=== PATIENT | male | born 1975 | race Caucasian/White ===

== ENCOUNTER 2023-03-13 22:54 | Emergency (ER) | payer OTHER, SELFPAY ==
--- NOTE | ~2023-03-13 | CT_ITS ---
EXAMINATION: CT HEAD WITHOUT CONTRAST CLINICAL INFORMATION: Dizziness. Ataxia. COMPARISON: CT head from 04/14/2019. TECHNIQUE: Contiguous axial imaging was performed from the skull base to vertex without intravenous administration of contrast. This CT examination was performed using dose optimization techniques as appropriate, variously including the following: *Automated exposure control. *Adjustment of mA and/or kV according to patient size (this includes techniques or standardized protocols for targeted exams where dose is matched to indication/reason for exam; i.e. extremities or head). *Use of iterative reconstruction technique. DLP: 715 mGy-cm FINDINGS: There is no evidence of acute intracranial hemorrhage or edematous territorial infarction. Sutton-white matter differentiation is preserved. There is no abnormal attenuation within the brain parenchyma. The ventricles are normal in morphology and size. No evidence for obstructive hydrocephalus. No abnormal mass effect or midline shift. No extra-axial fluid collections. No acute soft tissue or osseous abnormalities. Mild mucosal thickening of the paranasal sinuses. Mild rightward nasal septal deviation. The mastoid air cells and middle ear cavities are clear. CT/CT head/brain wo IV con IMPRESSION: No evidence of acute intracranial hemorrhage or edematous territorial infarction.
[2023-03-13 23:00] VITALS: BP 141/102; PULSE 92; RESP 16; TEMP 36.6; O2SAT 97; BMI 38.7
--- NOTE | 2023-03-14 00:05 | ED.DIZZY ---
HPI - Dizziness General Chief Complaint: Ear Problems Stated Complaint: possible tinnitus? Ear pain Time Seen by Provider: 03/13/23 23:48 Source: patient Mode of arrival: ambulatory Limitations: no limitations History of Present Illness HPI Narrative: 39-year-old male who presents emergency department for evaluation of right ear tinnitus and feeling as if he is falling. Patient states that the symptoms came on gradually 3 days prior. 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 He states that when he came to. He still felt his chair would intermittently drops. States he then developed a ?electric sound sensation in his right ear. Patient states the did have a buzzing sensation in his right ear in the past which resolved. He states that the sensation in his right ear now was different than the original sound. He states that he also feels like his head is full but he denies headache nausea or vomiting. He denies numbness or weakness. He denied rhinorrhea, cough, chest pain shortness of breath. He denied decreased hearing in his right ear. Related Data Previous Rx's Medication Instructions Recorded triamterene 37.5 1 tab PO QAM #30 tabs 03/14/23 mg-hydrochlorothiazide 25 mg tablet Allergies Allergy/AdvReac Type Severity Reaction Status Date / Time No Known Allergies Allergy Unverified 03/06/20 19:45 [No Known Allergies*] Review of Systems Review of Systems: Yes all other systems are reviewed and are negative [facility] Past Medical History Attestation statement: The following information was validated with the patient. [facility] Narrative: Past medical history: None. 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 He denies tobacco use. He rarely drinks alcohol. He denies drug use. Social History Social History Advance Directives: No Advance Directives Information Provided: No Physical Exam Vital Signs: Vital Signs: Last Vital Signs Temp 97.8 F 03/13/23 23:00 Pulse 92 03/13/23 23:00 Resp 16 03/13/23 23:00 BP 141/102 H 03/13/23 23:00 Pulse Ox 97 03/13/23 23:00 O2 Del Method Room Air 03/13/23 23:00 BMI result Body Mass Index 38.7 Vital signs were normal except for an elevated blood pressure of 141/102 Exam: General: Awake, alert in no distress Head: Normocephalic, atraumatic EENT: PERRL, Lids normal, sclera normal, conjunctiva normal, nose normal , ears normal, throat without erythema or exudates Neck: Supple, no adenopathy, trachea midline and nontender Lung: breath sounds symmetric, no wheezing, rales or rhonchi Chest: symmetric movement, nontender Heart: regular rate and rhythm, normal S1, S2 no murmurs or rubs Abdomen: soft, non-tender, nondistended, normal bowel sounds Back: no vertebral tenderness, no CVAT Extremities: no deformities, moves all extremities symmetrically Skin: no rashes, no lesion, normal color and warmth Neuro: Awake, alert, oriented, normal speech, cranial nerves intact, moves all extremities symmetrically. Patient has good adixqw-hw-bodo-to-finger, good rapid finger motion, normal heel to briceño. Patient's gait is normal. Patient is able to walk a straight line without any difficulty. Psych: Pleasant, cooperative Medical Decision Making Medical Decision Making MDM Narrative: 47-year-old male with a history of intermittent dizziness who presents emergency department for evaluation of 3 days of right ear tinnitus with and intermittent sensation that he is falling. Patient has had no decreased hearing is had no other concerning symptoms. Physical examination revealed no nystagmus. Patient has normal hearing. His neurologic exam was nonfocal and he had a normal cerebellar exam. I ordered a CT scan of his brain to rule out bleed, stroke, mass effect. 0120: Patient's CT scan of the brain was unremarkable. Patient's presentation is consistent with Meniere's disease. The patient will be started on Maxzide(triamterene/hydrochlorothiazide 37.5/25 mg once a day. Patient was advised to follow-up with his PCP for referral to ENT for further evaluation and treatment. Differential Diagnosis Differential Diagnoses: The differential diagnosis associated with the presentation includes Differential diagnosis includes was not limited to Meniere's disease, positional vertigo, stroke, intracranial bleed, mass effect Admission/Observation Consideration of admission/observation: Escalation of care including admission/observation considered Radiology Impression Discussion of test interpretation with radiology: I have reviewed the radiologist's reading. Radiologist Impression: CT head/brain wo IV con IMPRESSION: No evidence of acute intracranial hemorrhage or edematous territorial infarction. Dictated By: Lembo,Rinku DO Prescription Management I considered prescription management with: Other (Maxzide) Discharge Plan Discharge Clinical Impression: Meniere's disease Qualifiers: Laterality: right Qualified Code(s): H81.01 - Meniere's disease, right ear Patient Disposition: Home, Self-Care Instructions: Meniere Disease (ED) Additional Instructions: Your symptoms are consistent with Meniere's disease. Your neurologic exam was normal. The CT scan of your brain was normal as well which is reassuring. Take Maxzide(triamterene/hydrochlorothiazide 37.5-25 mg) 1 pill in the morning for 1 month. This medication is often used for high blood pressure however this medication is also used in Meniere's disease and is believed to reduce the fluid and viscosity (thickness) in the inner ear balance mechanism. This medication does not help with the tinnitus/ringing in your ear . This medication is a diuretic/water pill and will make you pee/your for several hours in the morning after you take the medicine. Reduce the amount of salt in your diet Follow-up with her doctor for re-evaluation and for a referral to to and Ear Nose an Throat (ENT) doctor for further evaluation and treatment of your Meniere's disease. Prescriptions: New triamterene-hydrochlorothiazid 37.5-25 mg tablet 1 tab PO QAM Qty: 30 0RF Referrals: Jose Ely [Physician] - 2 weeks (Evaluate for possible Meniere's disease)
== END 2023-03-14 01:39 | disposition home or self-care (01) ==
PROVIDERS: Emergency Provider Emergency Medicine Emergency Medical Services
DX: H81.01 Meniere's disease, right ear (principal)
CPT/HCPCS: 70450; 99282; 99284

== ENCOUNTER 2024-03-10 06:37 | Emergency (ER) | payer OTHER, SELFPAY ==
[2024-03-10 06:41] VITALS: BP 132/99; PULSE 116; RESP 18; TEMP 36.6; O2SAT 96; BMI 32.1
[2024-03-10 07:46] VITALS: BP 133/100; PULSE 102; RESP 16; TEMP 36.7
[2024-03-10 08:00] LABS: Hematocrit 50.3 % (42.0-52.0); Hemoglobin 17.7 g/dl (14.0-18.0); Mean Corpuscular HGB Conc 35.2 g/dl (31.0-36.0); Mean Corpuscular Hemoglobin 30.9 pg (27.0-33.0); Mean Corpuscular Volume 87.9 fL (80.0-98.0); Mean Platelet Volume 9.9 fL (9.4-12.4); Platelet Count 331 X10*3/uL (160-400); Red Blood Count 5.72 X10*6/uL (4.60-5.80); Red Cell Distribution Width 12.4 % (11.0-16.0); White Blood Count 10.2 X10*3/uL (4.8-10.8)
[2024-03-10 08:16] LABS: Anion Gap 14 (12-20); Blood Urea Nitrogen 29 mg/dL (9-16); Carbon Dioxide 19 mmol/L (22-29); Chloride 107 mmol/L (96-108); Estimated Glomerular Filt Rate > 60; Glucose Random 139 mg/dL (60-115); Potassium 3.8 mmol/L (3.3-5.1); Sodium 136 mmol/L (135-145)
--- NOTE | 2024-03-10 08:23 | ED_ITS ---
HPI - Nausea/Vomiting/Diarrhea General Chief complaint: Nausea/Vomiting/Diarrhea Stated complaint: started Diarrhea, not watery Time Seen by Provider: 03/10/24 08:16 Source: patient Mode of arrival: ambulatory Limitations: no limitations History of Present Illness ED Provider: DR. Allison HPI Narrative: 48-year-old male came in for evaluation of multiple episodes of nonbloody watery diarrhea since yesterday, patient's symptoms started few hours [place]. no other sick contacts, no recent use of antibiotic, patient otherwise declined nausea, vomiting, abdominal pain. Patient feels dehydrated. No history of surgery in the abdomen. No fever, no chills. Patient is been taking Ozempic IM shot weekly recently was increased for the purpose of losing weight the patient stated that he is not losing a significant weight. Related Data Previous Rx's ?Medication ?Instructions ?Recorded triamterene 37.5 1 tab PO QAM #30 tabs 03/14/23 mg-hydrochlorothiazide 25 mg tablet Allergies Allergy/AdvReac Type Severity Reaction Status Date / Time No Known Allergies Allergy Unverified 03/10/24 06:42 [No Known Allergies*] Review of Systems 2 Review of Systems: All other systems are reviewed and are negative Constitutional: Reports as per HPI and Reports no additional constitutional complaints Eyes: Reports as per HPI and Reports no additional eye complaints Reports system reviewed and no additional complaints, except as documented Cardiovascular: Reports as per HPI and Reports no additional cardiovascular complaints Respiratory: Reports as per HPI and Reports no additional respiratory complaints Gastrointestinal: Reports as per HPI and Reports no additional gastrointestinal complaints Genitourinary: Reports no additional female genitourinary complaints Musculoskeletal: Reports no additional musculoskeletal complaints Skin/Breast: Reports system reviewed and no additional complaints, except as docu Psychiatric: Reports no additional psychiatric complaints Endocrine: Reports no additional endocrine complaints Hematologic/Lymphatic: Reports no additional hematologic/lymphatic complaints Allergic/Immunologic: Reports no additional allergic/immunologic complaints Reports system reviewed and no additional complaints, except as documented and Reports Abnormal speech present [facility] Social History Social History Alcohol intake: current Alcohol intake frequency: a few times a month Smoked in Last 30 Days: No Use of substances other than those prescribed or required for medical reasons: No Advance Directives: No Do you have a plan to hurt others: No Plan Physical Exam 2 Vital Signs: Vital Signs: Last Vital Signs Temp 98.1 F 03/10/24 07:46 Pulse 102 H 03/10/24 07:46 Resp 16 03/10/24 07:46 BP 133/100 H 03/10/24 07:46 Pulse Ox 96 03/10/24 06:41 O2 Del Method Room Air 03/10/24 07:46 BMI result Body Mass Index 32.1 Vital signs have been reviewed and appear to be correct. Blood pressure elevated. Heart rate Elevated. Respiratory rate normal. Temperature normal. Oxygen saturation normal. Appearance: Alert. Oriented X3. No acute distress. Head: Normal external exam. Normocephalic. Atraumatic. No Maxwell signs noted. No raccoon eyes noted Eyes: PERRLA. EOMI. Conjunctiva and sclera normal. Eyelids normal. ENT: TM's Normal. Pharynx normal. Uvula midline. dry mucous membranes. No trismus noted. No drooling noted. No muffled voice noted. Neck: Normal inspection. Neck supple. FROM. No adenopathy. Thyroid Normal. No meningeal signs. No neck mass noted. CVS: Normal heart rate and rhythm. Heart sound normal. No murmurs noted. Pulses normal throughout. Respiratory: No respiratory distress. Painless inspiration. Breath sounds normal. No wheezes/rales/rhonchi noted. Chest nontender. No accessory muscle usage noted or decreased air movement noted. Abdomen: Soft and nontender. Bowel sounds normal in all 4 quadrants. No distention noted. No organomegaly noted. No visible injury noted. Back: No CVA tenderness. Full range of motion noted. Skin: Skin warm and dry. Normal skin color. Normal skin turgor. No rashes/lesions/lacerations noted. Extremities: No lower extremity edema. Extremities exhibit normal range of motion. Extremities nontender. Neuro: Oriented X 3. Cranial nerve exam: II-XII are grossly intact No motor deficit. No sensory deficit. Reflexes normal. Course Reevaluation(s) Reevaluation #1: 48-year-old male started to have diarrhea and dehydration after eating [place]. Received IV hydration, repeat exam showed no abdominal pain or tenderness. Patient was instructed to follow-up with PCP in regard to Ozempic shots. Time: 11:30 Medical Decision Making Differential Diagnosis Differential Diagnoses: The differential diagnosis associated with the presentation includes ( gastroenteritis, food poisoning, gastritis, acute appendicitis, colitis, electrolyte derangement, severe anemia.) Admission/Observation Consideration of admission/observation: Escalation of care including admission/observation considered Lab Data MDM Lab Attestation statement: I reviewed the patient's lab results. 03/10/24 07:44 03/10/24 07:44 Labs: Lab Results 03/10/24 Range/Units 07:44 WBC 10.2 (4.8-10.8) X10*3/uL RBC 5.72 (4.60-5.80) X10*6/uL Hgb 17.7 (14.0-18.0) g/dl Hct 50.3 (42.0-52.0) % MCV 87.9 (80.0-98.0) fL MCH 30.9 (27.0-33.0) pg MCHC 35.2 (31.0-36.0) g/dl RDW 12.4 (11.0-16.0) % Plt Count 331 (160-400) X10*3/uL MPV 9.9 (9.4-12.4) fL Absolute Nucleated RBC 0.000 (0.0-0.012) X10*3/uL Nucleated RBC % (auto) 0.0 (0.0-0.2) /100WBC Sodium 136 (135-145) mmol/L Potassium 3.8 (3.3-5.1) mmol/L Chloride 107 (96-108) mmol/L Carbon Dioxide 19 L (22-29) mmol/L Anion Gap 14 (12-20) BUN 29 H (9-16) mg/dL Creatinine 1.01 (0.5-1.4) mg/dL Estim Creat Clear Calc 93.0 Estimated GFR > 60 Random Glucose 139 H (60-115) mg/dL Calcium 10.0 (8.4-10.2) mg/dL Discharge Plan Discharge Clinical Impression: Food poisoning, Dehydration Patient Disposition: Home, Self-Care Instructions: Food Poisoning (ED) Prescriptions: No Action triamterene-hydrochlorothiazid 37.5-25 mg tablet 1 tab PO QAM Qty: 30 0RF Referrals: Cecilia De Souza MD [Primary Care Provider] - Print Language: Indian
[2024-03-10] MEDS: 0.9 % Sodium Chloride 1,000 ML 999 ML IV ×2 (08:28→09:46)
--- NOTE | 2024-03-10 08:38 | PC.NURSE ---
pt is alert and oriented, skin appropriate for ethnicity, respirations even and unlabored, pt reports that yesterday around [address] and around 1800 started not feeling right, had sever diarrhea around 25 times, denies blood in the stool, no abd pain and no nausea/vomiting. had one episode of diarrhea since the arrival to the ED.
[2024-03-10 08:41] LABS: Alanine Aminotransferase 29 U/L (0-40); Albumin Level 4.7 g/dL (3.5-5.0); Alkaline Phosphatase 84 U/L (39-117); Aspartate Amino Transferase 21 U/L (5-37); Bilirubin Direct 0.2 mg/dL (0.0-0.5); Bilirubin Total 0.5 mg/dL (0.0-1.0); Lipase 24 U/L (8-78); Total Protein 8.8 g/dL (6.5-8.0)
--- NOTE | 2024-03-10 10:00 | PC.NURSE ---
holding the imodium for now because attempting to obtain a stool sample but pt is unable to provide a stool sample at this time
[2024-03-10 10:08] VITALS: BP 145/98; PULSE 95; RESP 16; TEMP 36.7; O2SAT 98
--- NOTE | 2024-03-10 11:35 | PC.NURSE ---
pt continuos on sleeping, respirations even and unlabored, in no apparent distress at this time
[2024-03-10 12:10] VITALS: BP 129/90; PULSE 95; RESP 18; TEMP 36.8; O2SAT 98
[2024-03-10] MEDS: Loperamide HCl 2 MG CAPSULE PO (12:14)
[2024-03-10 12:39] VITALS: BP 129/90; PULSE 95; RESP 18; TEMP 36.8; O2SAT 98
== END 2024-03-10 12:39 | disposition home or self-care (01) ==
PROVIDERS: Emergency Provider Emergency Medicine; PCP Internal Medicine
DX: A05.9 Bacterial foodborne intoxication, unspecified (principal); R19.7 Diarrhea, unspecified; E86.0 Dehydration
CPT/HCPCS: 36415; 80048; 80076; 83690; 85027; 96360; 96361; 99284

== ENCOUNTER 2024-03-11 00:41 | Inpatient (IN) | payer OTHER, SELFPAY ==
--- NOTE | ~2024-03-11 | XR_ITS ---
EXAMINATION: XR ABDOMEN KUB CLINICAL INDICATION: Ileus. Follow-up. COMPARISON: Abdomen March 11, 2024. TECHNIQUE: AP view of the abdomen. FINDINGS: Enteric catheter tip in stomach. There is some gas in both large and small bowel loops without abnormal bowel dilatation. study Nonobstructive bowel pattern. No radiopaque urinary calculi. XR/XR KUB IMPRESSION: Enteric catheter tip in stomach. Nonobstructive bowel pattern. Electronically signed by: Madi Amaya MD 03/12/2024 03:46 PM EDT
--- NOTE | ~2024-03-11 | CT_ITS ---
EXAMINATION: CT ABDOMEN AND PELVIS WITHOUT CONTRAST CLINICAL INFORMATION: Abdominal distention. Air-fluid level on plain x-ray examination. COMPARISON: None available. TECHNIQUE: Multidetector volumetric imaging was performed from the superior aspect of the liver through the pubic symphysis. Sagittal and coronal reformatted images were obtained on the technologist's workstation. This CT examination was performed using dose optimization techniques as appropriate, variously including the following: *Automated exposure control *Adjustment of mA and/or kV according to patient size (this includes techniques or standardized protocols for targeted exams where dose is matched to indication/reason for exam; i.e. extremities or head) *Use of iterative reconstruction technique DLP: 708 mGy-cm FINDINGS: LUNG BASES: The visualized lung bases are unremarkable. LIVER, GALLBLADDER, AND BILIARY TREE: The liver is normal in size, shape, and attenuation. No focal hepatic lesion or biliary ductal dilatation is present. The gallbladder is unremarkable with no evidence of radiopaque gallstones, gallbladder wall thickening, or obvious pericholecystic inflammatory changes. PANCREAS: Unremarkable. SPLEEN: Unremarkable. ADRENAL GLANDS: Unremarkable. KIDNEYS AND URETERS: The kidneys are normal in size, shape, and attenuation. There is a 4 mm calculus mid to upper pole left kidney. There is no hydronephrosis. BLADDER: Unremarkable. GASTROINTESTINAL TRACT: There is distention mild thickening of the visualized distal esophagus. There is gastric distention with an air-fluid level. There are distended/mildly dilated proximal, mid and mid to distal small bowel loops with normal caliber most distal small bowel. The appendix is visualized and is within normal limits. There is air and fluid throughout the colon. ABDOMINAL WALL: No significant hernia is appreciated. LYMPH NODES: Normal. VASCULAR: Unremarkable. PELVIC VISCERA: Unremarkable. OSSEOUS STRUCTURES: Unremarkable. CT/CT abdomen pelvis wo IV con IMPRESSION: Distended/mildly dilated mid and proximal to distal small bowel loops with normal caliber most distal small bowel. There is air and fluid in the colon. There is distention of the stomach with an air-fluid level and mild thickening of the visualized distal esophagus. Findings are suggestive of an ileus. Partial small bowel obstruction considered less likely. Small left renal calculus. Fleischner guidelines were followed. Electronically signed by: Brennan Ruiz MD 03/11/2024 04:55 AM EDT RP
--- NOTE | ~2024-03-11 | XR_ITS ---
EXAMINATION: XR ABDOMEN KUB CLINICAL INDICATION: Pain. Concern for obstruction. COMPARISON: None available. TECHNIQUE: AP view of the abdomen. FINDINGS: There is mild gaseous distention of small bowel with air to the rectum. Scattered small bowel air-fluid levels are seen. There appears to be mild gastric distention. There is no evidence for free air. No abnormal calcifications are seen. The bony structures are unremarkable. XR/XR KUB IMPRESSION: Mild gaseous distention of small bowel with air-fluid levels. This is nonspecific, but could represent ileus. Correlation and follow-up needed. Electronically signed by: Brennan Ruiz MD 03/11/2024 02:59 AM EDT
--- NOTE | ~2024-03-11 | XR_ITS ---
EXAMINATION: XR CHEST CLINICAL INFORMATION: Nasogastric tube placement. COMPARISON: April 14, 2019. TECHNIQUE: Frontal view of the chest was obtained. FINDINGS: The cardiomediastinal silhouette is stable. There has been interval placement of a gastric tube which extends below the diaphragm into the left upper abdomen. The tip of the gastric tube is not seen. There is no focal lung consolidation or pleural effusions. The bony structures and the soft tissues are unremarkable. XR/XR chest 1V IMPRESSION: Gastric tube extends below the diaphragm into the left upper abdomen. The tip of the gastric tube is not seen. No focal lung consolidation or pleural effusions. Electronically signed by: Brennan Ruiz MD 03/11/2024 06:14 AM EDT
[2024-03-11 00:43] VITALS: BP 134/101; PULSE 108; RESP 18; TEMP 37.1; O2SAT 97; BMI 31.8
--- NOTE | 2024-03-11 00:52 | ECG_ITS ---
Test Reason : ABD PAIN Blood Pressure : / mmHG Vent. Rate : 103 BPM Atrial Rate : 103 BPM P-R Int : 144 ms QRS Dur : 106 ms QT Int : 342 ms P-R-T Axes : 035 -50 042 degrees QTc Int : 448 ms Sinus tachycardia Left anterior fascicular block Cannot rule out Inferior infarct (masked by fascicular block?) , age undetermined Abnormal ECG When compared with ECG of 26-JUN-2019 00:59, QRS axis Shifted left Minimal criteria for Inferior infarct are now Present Referred By: Generic ED Physician Electronically Signed By:MARYBEL RIVERA
[2024-03-11 01:16] VITALS: BP 125/95; PULSE 105; RESP 17; TEMP 36.4; O2SAT 95
[2024-03-11 01:39] LABS: MANUAL DIFF FLAG NO
[2024-03-11 01:41] LABS: Basophils Percent Auto 0.2 % (0-2); Eosinophils Absolute Auto 0.1 X10*3/uL (0.0-0.4); Eosinophils Percent Auto 0.5 % (0-4); Hematocrit 50.5 % (42.0-52.0); Hemoglobin 18.1 g/dl (14.0-18.0); Imm Gran Abs Auto 0.03 X10*3/uL (0.00-0.03); Imm Gran Pct Auto 0.3 % (0.0-0.4); Lymphocytes Percent Auto 8.4 % (20-40); Mean Corpuscular HGB Conc 35.8 g/dl (31.0-36.0); Mean Corpuscular Hemoglobin 31.2 pg (27.0-33.0); Mean Corpuscular Volume 87.1 fL (80.0-98.0); Mean Platelet Volume 9.7 fL (9.4-12.4); Monocytes Absolute Auto 0.6 X10*3/uL (0.1-1.2); Monocytes Percent Auto 4.9 % (2-11); Neutrophils Percent Auto 85.7 % (45-73); Platelet Count 319 X10*3/uL (160-400); Red Cell Distribution Width 12.5 % (11.0-16.0); White Blood Count 11.6 X10*3/uL (4.8-10.8)
[2024-03-11 01:54] LABS: Anion Gap 14 (12-20)
[2024-03-11 02:06] LABS: Alanine Aminotransferase 28 U/L (0-40); Albumin Level 4.7 g/dL (3.5-5.0); Alkaline Phosphatase 91 U/L (39-117); Aspartate Amino Transferase 20 U/L (5-37); Bilirubin Total 0.9 mg/dL (0.0-1.0); Blood Urea Nitrogen 21 mg/dL (9-16); Calcium 10.2 mg/dL (8.4-10.2); Carbon Dioxide 18 mmol/L (22-29); Chloride 109 mmol/L (96-108); Creatinine Clr Calc Pharmacy 94.4; Estimated Glomerular Filt Rate > 60; Glucose Random 132 mg/dL (60-115); Lipase 18 U/L (8-78); Potassium 4.1 mmol/L (3.3-5.1); Sodium 137 mmol/L (135-145); Total Protein 8.9 g/dL (6.5-8.0)
[2024-03-11 02:17] LABS: Influenza A PCR NEGATIVE (Negative); Influenza B PCR NEGATIVE (Negative); Resp Syncy Virus RNA Qual PCR NEGATIVE (Negative); SARS COV2 PCR INHOUSE NEGATIVE (Negative)
--- NOTE | 2024-03-11 02:36 | ED.NAVMDI ---
HPI - Nausea/Vomiting/Diarrhea General Chief complaint: Nausea/Vomiting/Diarrhea Stated complaint: n/v/d, uro gen male Time Seen by Provider: 03/11/24 02:26 Source: patient Mode of arrival: ambulatory Limitations: no limitations History of Present Illness ED Provider: Dr. Henriquez HPI Narrative: Patient was seen yesterday with vomiting and diarrhea after eating a subway sandwhich. Today he presents with abdominal pain and distention. MD elicited complaint: nausea, vomiting, diarrhea and abdominal pain Related Data Home Medications ?Medication ?Instructions ?Recorded ?Confirmed psyllium husk 0.52 gram capsule 1,450 PO DAILY 03/11/24 semaglutide 0.25 mg or 0.5 mg (2 0.75 mg subcut QWEEK 03/11/24 03/11/24 mg/3 mL) subcutaneous pen injector (Ozempic) tadalafil 5 mg tablet 5 mg PO DAILY 03/11/24 03/11/24 Allergies Allergy/AdvReac Type Severity Reaction Status Date / Time No Known Allergies Allergy Verified 03/11/24 00:43 [No Known Allergies*] Review of Systems Review of Systems: Yes all other systems are reviewed and are negative Neurologic: Denies Sensory deficit (Neuro) [facility] Past Medical History Medical History (Updated 03/11/24 @ 10:53 by Jani Huffman MD) Gastroenteritis Hypertension Social History Social History Household Members: None Housing: Apartment Do you presently have visiting nurse or other home services: No Alcohol intake: current Alcohol intake frequency: a few times a month Patient Tobacco Use Status: Former Tobacco user Tobacco use type: Cigarette Smoked in Last 30 Days: No Use of substances other than those prescribed or required for medical reasons: No Currently Displaying Signs/Symptoms of Drug Intoxication Withdrawal: No Do you feel safe in your current relationship?: No Current Relationship Advance Directives: No Advance Directives Information Provided: Yes Do you have a plan to hurt others: No Plan Recently lost weight without trying: No Nutrition Risks: No Nutritional Risk Poor oral hygiene: No service: No Physical Exam Vital Signs: Vital Signs: Last Vital Signs Temp 98 F 03/12/24 19:10 Pulse 89 03/12/24 19:10 Resp 20 03/12/24 19:10 BP 119/82 03/12/24 19:10 Pulse Ox 95 03/12/24 19:10 O2 Del Method Room Air 03/12/24 19:10 BMI result Body Mass Index 31.8 Const: General: healthy appearing Nutritional Appearance: average body habitus Orientation/consciousness: oriented to person and patient oriented x3 Limitations: no limitations HEENT: Head: Yes normal to inspection Ears: external ears normal General nose exam: Normal external nose present Mouth: Normal oral and palatal mucosa present and oropharynx normal Throat: Yes posterior oropharynx normal Eyes: General: appearance normal, both eyes and all related structures Neck: Other: supple Neck: Yes normal visual inspection Chest: Chest palpation & inspection: normal inspection of the chest Resp: Auscultation: clear to auscultation bilaterally Cardio: Jugular venous distension: no JVD Rate: regular rate Rhythm: regular rhythm Heart sounds: S1 normal heart sound present and S2 normal heart sound present GI: Other: diffusely tender abdomen with some distention : General: Yes no CVA tenderness Back/Spine/Pelvis: Back: no CVA tenderness Skin: General skin exam: no rashes or lesions noted Neuro: General: oriented to person and patient oriented x3 Cranial nerves: Yes CN's II-XII intact bilaterally Motor exam (neuro): 5/5 motor strength present throughout Sensory Exam: No Sensory deficit (Neuro) Extrem: General: Yes normal to inspection Psych: Appearance: grossly normal Course Reevaluation(s) Reevaluation #1: KUB showed air fluid levels concerning for SBO, CT of abdomen shows mostly ileus will place NGT and admit. Time: 05:30 Medications Administered Generic Name Dose Route Start Last Admin Trade Name Freq PRN Reason Stop Dose Admin Lactated Ringer's 1,000 mls @ 125 mls/hr 03/11/24 08:45 03/13/24 01:09 Lr IVCONT 125 mls/hr .Q8H GINGER Administration Multi-Ingred Medicated Throat [place] 1 spray 03/11/24 08:43 03/12/24 05:56 Throat [place], Medicated 177 Ml Bottle MUCOUS MEM 1 spray Q2H PRN Administration Sore Throat Sodium Chloride 3 ml 03/11/24 08:00 03/13/24 00:20 0.9 % Sodium Chloride Flush 3 Ml Syringe IVFLUSH Not Given QSHIFT GINGER Discontinued Medications Generic Name Dose Route Start Last Admin Trade Name Freq PRN Reason Stop Dose Admin Diphenhydramine HCl 25 mg 03/11/24 16:14 03/11/24 16:27 Diphenhydramine Hcl 50 Mg/Ml Vial IVPUSH 03/11/24 16:15 25 mg ONCE ONE Administration Sodium Chloride 1,000 mls @ 999 mls/hr 03/11/24 02:45 03/11/24 04:42 Ns IV 03/11/24 03:45 Infused .Q1H1M GINGER Infusion Lorazepam 1 mg 03/11/24 06:41 03/11/24 07:18 Lorazepam 2 Mg/Ml Vial IVPUSH 03/11/24 06:42 1 mg STAT STA Administration Ondansetron HCl 4 mg 03/11/24 05:41 03/11/24 05:46 Ondansetron Hcl 4 Mg/2 Ml Vial IVPUSH 03/11/24 05:42 4 mg ONCE ONE Administration Pantoprazole Sodium 40 mg 03/11/24 02:37 03/11/24 02:55 Pantoprazole Sodium 40 Mg/10 Ml Vial IVPUSH 03/11/24 02:38 40 mg ONCE ONE Administration Medical Decision Making Differential Diagnosis Differential Diagnoses: The differential diagnosis associated with the presentation includes (SBO, ileus, dehydration) Admission/Observation Consideration of admission/observation: Escalation of care including admission/observation considered (upon arrival admission was considered) Consult Healthcare Provider Management of the patient was discussed with: Hospitalist and [employer] Operator (Dr. Huffman) Lab Data 03/12/24 05:41 03/12/24 05:41 Labs: Lab Results 03/11/24 Range/Units 01:34 WBC 11.6 H (4.8-10.8) X10*3/uL RBC 5.80 (4.60-5.80) X10*6/uL Hgb 18.1 H (14.0-18.0) g/dl Hct 50.5 (42.0-52.0) % MCV 87.1 (80.0-98.0) fL MCH 31.2 (27.0-33.0) pg MCHC 35.8 (31.0-36.0) g/dl RDW 12.5 (11.0-16.0) % Plt Count 319 (160-400) X10*3/uL MPV 9.7 (9.4-12.4) fL Immature Gran % (Auto) 0.3 (0.0-0.4) % Neut % (Auto) 85.7 H (45-73) % Lymph % (Auto) 8.4 L (20-40) % [place] % (Auto) 4.9 (2-11) % Eos % (Auto) 0.5 (0-4) % Baso % (Auto) 0.2 (0-2) % Lymph # (Auto) 1.0 L (1.2-4.9) X10*3/uL [place] # (Auto) 0.6 (0.1-1.2) X10*3/uL Eos # (Auto) 0.1 (0.0-0.4) X10*3/uL Baso # (Auto) 0.0 (0.0-0.2) X10*3/uL Abs Immat Gran (auto) 0.03 (0.00-0.03) X10*3/uL Absolute Neuts (auto) 10.0 H (2.0-8.3) x10*3/uL Absolute Nucleated RBC 0.000 (0.0-0.012) X10*3/uL Nucleated RBC % (auto) 0.0 (0.0-0.2) /100WBC Sodium 137 (135-145) mmol/L Potassium 4.1 (3.3-5.1) mmol/L Chloride 109 H (96-108) mmol/L Carbon Dioxide 18 L (22-29) mmol/L Anion Gap 14 (12-20) BUN 21 H (9-16) mg/dL Creatinine 0.99 (0.5-1.4) mg/dL Estim Creat Clear Calc 94.4 Estimated GFR > 60 Random Glucose 132 H (60-115) mg/dL Calcium 10.2 (8.4-10.2) mg/dL Total Bilirubin 0.9 (0.0-1.0) mg/dL AST 20 (5-37) U/L ALT 28 (0-40) U/L Alkaline Phosphatase 91 (39-117) U/L Total Protein 8.9 H (6.5-8.0) g/dL Albumin 4.7 (3.5-5.0) g/dL Lipase 18 (8-78) U/L Influenza Type A (PCR) NEGATIVE (Negative) Influenza Type B (PCR) NEGATIVE (Negative) RSV RNA Qual (PCR) NEGATIVE (Negative) SARS-CoV-2 RNA (RT-PCR) NEGATIVE (Negative) Independent Interpretation I performed an independent interpretation of an: Plain X-Ray (air fluid levels throughout colon and small bowel possible sbo) and CT Scan (dilated bowel loops) Radiology Impression Discussion of test interpretation with radiology: I have reviewed the radiologist's reading. External Record Review External record reviewed: Outpatient record Prescription Management I considered prescription management with: Antibiotic (no bacterial infection seen) Discharge Plan Discharge Clinical Impression: Ileus, SBO (small bowel obstruction) Patient Disposition: Admitted As Inpatient Interventions: Admission Worksheet (ED) Last Done: 03/11/24 07:47 Discharge Date/Time: 03/11/24 10:18
[2024-03-11] MEDS: Pantoprazole Sodium 40 MG/10 ML VIAL IVPUSH (02:55)
[2024-03-11] MEDS: 0.9 % Sodium Chloride 1,000 ML 999 ML IV (02:55)
[2024-03-11] MEDS: ondansetron HCL 4 MG/2 ML VIAL IVPUSH (05:46)
[2024-03-11 05:54] VITALS: BP 147/97; PULSE 123; RESP 18; TEMP 36.3; O2SAT 97
--- NOTE | 2024-03-11 06:08 | P.HPHOSP_ITS ---
History of Present Illness Date of Service: 03/11/24 Chief Complaint: Abdominal pain and distention This is a 48-year-old male with pertinent history of hypertension, obesity on Ozempic who presents to the emergency department for evaluation of abdominal pain and distention. Patient states he started having multiple episodes of nonbloody watery diarrhea on 03/09 after he ate a [employer] sandwich. Patient was seen in the ER on 03/10 and discharged after IV crystalloid resuscitation. Patient states he continued to have abdominal pain with distention. Abdominal pain was generalized, progressive, nonradiating and without any relieving factors. States he was unable to pass stools on the day of presentation despite abdominal pressure. No history of similar complaints in the past or history of abdominal surgery. No recent use of antibiotics. Had 1 episode of nonbloody emesis in the ER. No fever, chills, chest discomfort, palpitations, shortness of breath, changes in urinary habits. In the emergency department, imaging concerning for ileus. NG tube was placed and more than 1200 cc output obtained. Review of Systems 2 Constitutional: Constitutional: Reports fatigue and Reports poor appetite Cardiovascular: Cardiovascular: Reports no additional cardiovascular complaints Respiratory: Respiratory: Reports no additional respiratory complaints Gastrointestinal: Gastrointestinal: Reports abdominal pain, Reports nausea and Reports vomiting Genitourinary: Genitourinary: Reports no additional male genitourinary complaints Endocrine: Endocrine: Reports fatigue [facility] Medical History Hypertension Pertinent family history: No family history of early CAD Social History Alcohol intake: current Alcohol intake frequency: a few times a month Smoked in Last 30 Days: No Use of substances other than those prescribed or required for medical reasons: No Advance Directives: No Advance Directives Information Provided: Yes Do you have a plan to hurt others: No Plan Meds Allergies Allergy/AdvReac Type Severity Reaction Status Date / Time No Known Allergies Allergy Verified 03/11/24 00:43 [No Known Allergies*] Physical Exam 2 Vital Signs and Narrative: Vital Signs: Last Vital Signs Temp 97.3 F 03/11/24 05:54 Pulse 123 H 03/11/24 05:54 Resp 18 03/11/24 05:54 BP 147/97 H 03/11/24 05:54 Pulse Ox 97 03/11/24 05:54 O2 Del Method Room Air 03/11/24 05:54 BMI result Body Mass Index 31.8 Middle-aged male lying in bed in no distress with NG tube in place Neck supple, no JVD Regular rate and rhythm, S1-S2 heard Regular breath sounds bilaterally, no wheezing or crackles appreciated Abdomen distended abdomen and reduced bowel sounds, no guarding, no rigidity, no rebound tenderness Patient is awake, alert and oriented to self, place, time and person ; no focal motor deficit Psych: Normal mood No pedal edema Results Labs 03/11/24 01:34 03/11/24 01:34 Labs: Laboratory Results - last 24 hr 03/11/24 01:34 MCV 87.1 MCH 31.2 MCHC 35.8 RDW 12.5 Plt Count 319 MPV 9.7 Immature Gran % (Auto) 0.3 Neut % (Auto) 85.7 H Lymph % (Auto) 8.4 L Mcculloch % (Auto) 4.9 Eos % (Auto) 0.5 Baso % (Auto) 0.2 Lymph # (Auto) 1.0 L Mcculloch # (Auto) 0.6 Eos # (Auto) 0.1 Baso # (Auto) 0.0 Abs Immat Gran (auto) 0.03 Absolute Neuts (auto) 10.0 H Absolute Nucleated RBC 0.000 Nucleated RBC % (auto) 0.0 Anion Gap 14 Estim Creat Clear Calc 94.4 Estimated GFR > 60 Random Glucose 132 H Calcium 10.2 Total Bilirubin 0.9 AST 20 ALT 28 Alkaline Phosphatase 91 Total Protein 8.9 H Albumin 4.7 Lipase 18 Influenza Type A (PCR) NEGATIVE Influenza Type B (PCR) NEGATIVE RSV RNA Qual (PCR) NEGATIVE SARS-CoV-2 RNA (RT-PCR) NEGATIVE Imaging Radiologist's Impressions: Impressions KUB X-Ray 03/11/24 02:37 IMPRESSION: Mild gaseous distention of small bowel with air-fluid levels. This is nonspecific, but could represent ileus. Correlation and follow-up needed. Electronically signed by: Brennan Ruiz MD 03/11/2024 02:59 AM EDT Abdomen/Pelvis CT 03/11/24 03:46 IMPRESSION: Distended/mildly dilated mid and proximal to distal small bowel loops with normal caliber most distal small bowel. There is air and fluid in the colon. There is distention of the stomach with an air-fluid level and mild thickening of the visualized distal esophagus. Findings are suggestive of an ileus. Partial small bowel obstruction considered less likely. Small left renal calculus. Fleischner guidelines were followed. Electronically signed by: Brennan Ruiz MD 03/11/2024 04:55 AM EDT RP Assessment and Plan (1) Ileus: Status: Acute Plan This is a 48-year-old male with pertinent history of hypertension, obesity on Ozempic who presents to the emergency department for evaluation of abdominal pain and distention. #. Ileus/partial SBO: NG tube placed in the ER with >1200cc output. Will keep patient NPO and consulting general surgery. Resuscitated with IV crystalloids. Continue NG tube with suction. #. Hypertension: Resume home antihypertensives once able to take p.o. #. Obesity: Counseled regarding diet and exercise. Patient on Ozempic Med rec pending DVT prophylaxis: Mechanical Full code Admit as inpatient and will require two night minimum hospital stay for monitoring of bowel function (as above), which is not possible in a lesser acute setting. Specialist consult pending Quality Stroke Does the patient have a stroke diagnosis?: No VTE Prior VTE?: No VTE Risk Level:: Medical - moderate - high VTE Device Contraindication: N/A - Device Ordered VTE Drug Contraindication: Treatment Not Indicated
--- NOTE | 2024-03-11 06:24 | PC.NURSE ---
[place] text Dr Power, informed him, pt's heart rate was 122. Dr Power replied that was fine. No new orders
--- NOTE | 2024-03-11 06:56 | PC.NURSE ---
report given to Karla SPENCER
[2024-03-11] MEDS: LORazepam 2 MG/ML VIAL 1 MG IVPUSH (07:18)
--- NOTE | 2024-03-11 08:09 | PHA.MEDREC ---
Addendum entered by Hermelindo Nichols RPh 03/11/24 09:10: MED REC CHECKED BY [facility] Original Note: Pharmacy Consult ? Medication Reconciliation Pharmacy has completed the medication reconciliation. Pt states they will no longer take Ozempic on their own volition, but last took 0.75 mg last week.
[2024-03-11] MEDS: 0.9 % Sodium Chloride Flush 3 ML SYRINGE IVFLUSH (08:35)
--- NOTE | 2024-03-11 08:39 | PC.NURSE ---
Belongings list completed, by supervisor pit and auxiliaries. Pt reports he cannot locate his Rx glasses. They have a thick black frame. Pt reports when placing his NG tube his blankets became very soiled and were removed from his bed. He suspects the glasses were wrapped up in those blankets and were taking away along with. Call placed down to environmental, staff willing to check laundry bags located there for Pts glasses and will report any findings. Pt made aware of effort to locate glasses.
--- NOTE | 2024-03-11 08:45 | P.EN_ITS ---
Event Note Date of Service: 03/11/24 Event Note: Seen and examined this morning. patient awake, alert; abdomen soft, non- distended non-tender; lungs clear Follow-up for ileus Abdominal distention improved, abdominal pain improved, but reporting discomfort from NGT NG tube in place surgical consult pending GI panel pending ozempic dose recently increased - on hold for hypertension - does not appear to be on any medication further management as per admission H&P Time Spent With Patient Time: Total time managing care of this patient today ____ minutes.
[2024-03-11] MEDS: Lactated Ringers 1,000 ML 100 ML IVCONT (10:24)
[2024-03-11 10:31] VITALS: BP 132/86; PULSE 116; RESP 16; TEMP 36.9; O2SAT 98
--- NOTE | 2024-03-11 10:41 | MHC.CM.PN ---
Patient lives in an apartment alone. Functionally independent. Denies use of DME or services. PCP Koki Torres MD No HCP. CM provided education and offered assistance. Patient declined. DP: Goal is home self care. Car in [facility] lot and prefers to transport self home. May need shuttle as he believes he lost his glasses in the ED. CM will continue to follow.
[2024-03-11 10:43] VITALS: BMI 32.0
--- NOTE | 2024-03-11 10:50 | PM.CNGS ---
History of Present Illness Consult details Consult date: 03/11/24 Narrative: 48-year-old male admitted because of her diarrhea. He says this started after he had eaten at [employer] 2 nights ago. He started to have severe diarrhea immediately. He says that this was very watery. He went to the ER yesterday morning. Apparently, he had improved so he was discharged but he said he had at least episodes of watery diarrhea overnight so he came back to the emergency room early this morning He had a CAT scan done showing diffuse small-bowel dilatation consistent with ileus. There is no evidence of any obstruction He says that his diarrhea has slowed down this morning. He actually denies significant abdominal pain. He says he feels more of pressure in his abdomen. He denies any vomiting . No other household members of the same symptoms. Review of Systems Constitutional: Constitutional: Denies chills and Denies fever(s) Cardiovascular: Cardiovascular: Denies chest pain, Denies dyspnea and Denies dyspnea on exertion Respiratory: Respiratory: Denies cough, Denies dyspnea and Denies dyspnea on exertion Gastrointestinal: Gastrointestinal: Denies hematochezia, Denies change in bowel habits and Reports diarrhea Genitourinary: Genitourinary: Denies hematuria and Denies difficulty urinating Musculoskeletal: Musculoskeletal: Denies back pain and Denies limited range of motion Neurologic: Denies focal weakness and Denies convulsions Psychiatric: Psychiatric: Denies depression and Denies mood swings PMFSH Past Medical History Medical History (Updated 03/11/24 @ 10:53 by Jani Huffman MD) Gastroenteritis Hypertension Social History Social History Household Members: None Housing: Apartment Do you presently have visiting nurse or other home services: No Alcohol intake: current Alcohol intake frequency: a few times a month Patient Tobacco Use Status: Former Tobacco user Tobacco use type: Cigarette Smoked in Last 30 Days: No Use of substances other than those prescribed or required for medical reasons: No Currently Displaying Signs/Symptoms of Drug Intoxication Withdrawal: No Do you feel safe in your current relationship?: No Current Relationship Advance Directives: No Advance Directives Information Provided: Yes Do you have a plan to hurt others: No Plan Recently lost weight without trying: No Nutrition Risks: No Nutritional Risk Poor oral hygiene: No service: No Meds Allergies Allergy/AdvReac Type Severity Reaction Status Date / Time No Known Allergies Allergy Verified 03/11/24 00:43 [No Known Allergies*] Active Medications: Current Medications Acetaminophen (Acetaminophen 325 Mg Tablet) 650 mg PO Q6H PRN PRN Reason: Pain, Mild (Pain Scale 1-3), fever or headache Calcium Carbonate (Calcium Carbonate 750 Mg Tab.Chew) 750 mg PO Q4H PRN PRN Reason: Heartburn Lactated Ringer's (Lr) 1,000 mls @ 100 mls/hr IVCONT .Q10H COUNT INCLUDES THE [facility] Last Admin: 03/11/24 10:24 Dose: 100 mls/hr Magnesium Hydroxide (Milk Of Magnesia 30 Ml Oral.Susp) 30 ml PO DAILY PRN PRN Reason: Constipation Melatonin (Melatonin 3 Mg Tablet) 6 mg PO BEDTIME PRN PRN Reason: Insomnia Multi-Ingred Medicated Throat [place] (Throat [place], Medicated 177 Ml Bottle) 1 spray MUCOUS MEM Q2H PRN PRN Reason: Sore Throat Ondansetron HCl (Ondansetron Hcl 4 Mg/2 Ml Vial) 4 mg IVPUSH Q8H PRN PRN Reason: Nausea and Vomiting Sodium Chloride (0.9 % Sodium Chloride Flush 3 Ml Syringe) 3 ml IVFLUSH QSHIFT COUNT INCLUDES THE [facility] Last Admin: 03/11/24 08:35 Dose: 3 ml Home Medications ?Medication ?Instructions ?Recorded ?Confirmed ?Last Taken ?Type psyllium husk 0.52 gram capsule 1,450 PO DAILY 03/11/24 03/08/24 History semaglutide 0.25 mg or 0.5 mg (2 0.75 mg subcut QWEEK 03/11/24 03/11/24 1 Week Ago History mg/3 mL) subcutaneous pen injector ~03/04/24 (Ozempic) tadalafil 5 mg tablet 5 mg PO DAILY 03/11/24 03/11/24 Unknown History Physical Exam Vital Signs: Vital Signs: Last Vital Signs Temp 98.5 F 03/11/24 10:31 Pulse 116 H 03/11/24 10:31 Resp 16 03/11/24 10:31 BP 132/86 03/11/24 10:31 Pulse Ox 98 03/11/24 10:31 O2 Del Method Room Air 03/11/24 10:31 BMI result Body Mass Index 32.0 Const: General: comfortable and no acute distress Orientation/consciousness: patient oriented x3 Neck: Neck: Yes no lymphadenopathy Resp: Auscultation: clear to auscultation bilaterally Cardio: Rhythm: regular rhythm GI: Palpation (GI): Soft to palpation, nontender and no guarding Neuro: General: patient oriented x3 Results Labs 03/12/24 05:41 03/12/24 05:41 Labs: Abnormal lab results 03/11/24 Range/Units 01:34 WBC 11.6 H (4.8-10.8) X10*3/uL Hgb 18.1 H (14.0-18.0) g/dl Neut % (Auto) 85.7 H (45-73) % Lymph % (Auto) 8.4 L (20-40) % Lymph # (Auto) 1.0 L (1.2-4.9) X10*3/uL Absolute Neuts (auto) 10.0 H (2.0-8.3) x10*3/uL Chloride 109 H (96-108) mmol/L Carbon Dioxide 18 L (22-29) mmol/L BUN 21 H (9-16) mg/dL Random Glucose 132 H (60-115) mg/dL Total Protein 8.9 H (6.5-8.0) g/dL Short CBC 03/11/24 Range/Units 01:34 WBC 11.6 H (4.8-10.8) X10*3/uL Hgb 18.1 H (14.0-18.0) g/dl Hct 50.5 (42.0-52.0) % Plt Count 319 (160-400) X10*3/uL BMP 03/11/24 01:34 Sodium 137 Potassium 4.1 Chloride 109 H Carbon Dioxide 18 L BUN 21 H Creatinine 0.99 Calcium 10.2 Liver Function 03/11/24 Range/Units 01:34 Total Bilirubin 0.9 (0.0-1.0) mg/dL AST 20 (5-37) U/L ALT 28 (0-40) U/L Alkaline Phosphatase 91 (39-117) U/L Albumin 4.7 (3.5-5.0) g/dL All other labs normal. Laboratory Results WBC 11.6 X10*3/uL (4.8-10.8) H 03/11/24 01:34 RBC 5.80 X10*6/uL (4.60-5.80) 03/11/24 01:34 Hgb 18.1 g/dl (14.0-18.0) H 03/11/24 01:34 Hct 50.5 % (42.0-52.0) 03/11/24 01:34 MCV 87.1 fL (80.0-98.0) 03/11/24 01:34 MCH 31.2 pg (27.0-33.0) 03/11/24 01:34 MCHC 35.8 g/dl (31.0-36.0) 03/11/24 01:34 RDW 12.5 % (11.0-16.0) 03/11/24 01:34 Plt Count 319 X10*3/uL (160-400) 03/11/24 01:34 MPV 9.7 fL (9.4-12.4) 03/11/24 01:34 Immature Gran % (Auto) 0.3 % (0.0-0.4) 03/11/24 01:34 Neut % (Auto) 85.7 % (45-73) H 03/11/24 01:34 Lymph % (Auto) 8.4 % (20-40) L 03/11/24 01:34 Colbert % (Auto) 4.9 % (2-11) 03/11/24 01:34 Eos % (Auto) 0.5 % (0-4) 03/11/24 01:34 Baso % (Auto) 0.2 % (0-2) 03/11/24 01:34 Lymph # (Auto) 1.0 X10*3/uL (1.2-4.9) L 03/11/24 01:34 Colbert # (Auto) 0.6 X10*3/uL (0.1-1.2) 03/11/24 01:34 Eos # (Auto) 0.1 X10*3/uL (0.0-0.4) 03/11/24 01:34 Baso # (Auto) 0.0 X10*3/uL (0.0-0.2) 03/11/24 01:34 Abs Immat Gran (auto) 0.03 X10*3/uL (0.00-0.03) 03/11/24 01:34 Absolute Neuts (auto) 10.0 x10*3/uL (2.0-8.3) H 03/11/24 01:34 Absolute Nucleated RBC 0.000 X10*3/uL (0.0-0.012) 03/11/24 01:34 Nucleated RBC % (auto) 0.0 /100WBC (0.0-0.2) 03/11/24 01:34 Sodium 137 mmol/L (135-145) 03/11/24 01:34 Potassium 4.1 mmol/L (3.3-5.1) 03/11/24 01:34 Chloride 109 mmol/L (96-108) H 03/11/24 01:34 Carbon Dioxide 18 mmol/L (22-29) L 03/11/24 01:34 Anion Gap 14 (12-20) 03/11/24 01:34 BUN 21 mg/dL (9-16) H 03/11/24 01:34 Creatinine 0.99 mg/dL (0.5-1.4) 03/11/24 01:34 Estim Creat Clear Calc 94.4 03/11/24 01:34 Estimated GFR > 60 03/11/24 01:34 Random Glucose 132 mg/dL (60-115) H 03/11/24 01:34 Calcium 10.2 mg/dL (8.4-10.2) 03/11/24 01:34 Total Bilirubin 0.9 mg/dL (0.0-1.0) 03/11/24 01:34 AST 20 U/L (5-37) 03/11/24 01:34 ALT 28 U/L (0-40) 03/11/24 01:34 Alkaline Phosphatase 91 U/L (39-117) 03/11/24 01:34 Total Protein 8.9 g/dL (6.5-8.0) H 03/11/24 01:34 Albumin 4.7 g/dL (3.5-5.0) 03/11/24 01:34 Lipase 18 U/L (8-78) 03/11/24 01:34 Influenza Type A (PCR) NEGATIVE (Negative) 03/11/24 01:34 Influenza Type B (PCR) NEGATIVE (Negative) 03/11/24 01:34 RSV RNA Qual (PCR) NEGATIVE (Negative) 03/11/24 01:34 SARS-CoV-2 RNA (RT-PCR) NEGATIVE (Negative) 03/11/24 01:34 Impressions KUB X-Ray 03/11/24 02:37 IMPRESSION: Mild gaseous distention of small bowel with air-fluid levels. This is nonspecific, but could represent ileus. Correlation and follow-up needed. Electronically signed by: Brennan Ruiz MD 03/11/2024 02:59 AM EDT RP Abdomen/Pelvis CT 03/11/24 03:46 IMPRESSION: Distended/mildly dilated mid and proximal to distal small bowel loops with normal caliber most distal small bowel. There is air and fluid in the colon. There is distention of the stomach with an air-fluid level and mild thickening of the visualized distal esophagus. Findings are suggestive of an ileus. Partial small bowel obstruction considered less likely. Small left renal calculus. Fleischner guidelines were followed. Electronically signed by: Brennan Ruiz MD 03/11/2024 04:55 AM EDT RP Chest X-Ray 03/11/24 05:21 IMPRESSION: Gastric tube extends below the diaphragm into the left upper abdomen. The tip of the gastric tube is not seen. No focal lung consolidation or pleural effusions. Electronically signed by: Brennan Ruiz MD 03/11/2024 06:14 AM EDT RP Assessment and Plan (1) Gastroenteritis: Status: Acute He was admitted because of severe diarrhea. He had a CAT scan showing diffuse dilatation of the small bowel loops. There is no evidence of small-bowel obstruction His diarrhea has improved significantly. He abdomen is very soft and benign. He has an NG tube in place and he had a lot of output on initial insertion. However, so far, there has not been much output. I will monitor this the rest of the day and hopefully we can pull this out later on today He has GI panel ordered already. His electrolytes should be followed. He should be adequately hydrated via IV. I will follow along while he is in the hospital. Procedures Date of Service Date of Service: 03/13/24
[2024-03-11] MEDS: Throat Spray, Medicated 177 ML BOTTLE 1 SPRAY MUCOUS MEM (11:57)
[2024-03-11 12:22] LABS: Adenovirus F 40/41 Not Detected (Not Detect.); Astrovirus Not Detected (Not Detect.); Campylobacter Not Detected (Not Detect.); Cryptosporidium Not Detected (Not Detect.); Cyclospora cayetanensis Not Detected (Not Detect.); E. coli EAEC Not Detected (Not Detect.); E. coli EPEC Not Detected (Not Detect.); E. coli ETEC Not Detected (Not Detect.); E. coli STEC Not Detected (Not Detect.); Entamoeba histolytica Not Detected (Not Detect.); Giardia lamblia Not Detected (Not Detect.); Norovirus GI/GII Not Detected (Not Detect.); Plesiomonas shigelloides Not Detected (Not Detect.); Rotavirus A Not Detected (Not Detect.); Salmonella Not Detected (Not Detect.); Sapovirus Not Detected (Not Detect.); Shigella sp./EIEC Not Detected (Not Detect.); Vibrio Not Detected (Not Detect.); Vibrio Cholerae Not Detected (Not Detect.); Yersinia enterocolitica Not Detected (Not Detect.)
--- NOTE | 2024-03-11 13:40 | PC.NURSE ---
Addendum entered by Barb Rivera RN 03/11/24 18:10: F/U with ED RN, no glasses found at this time. Original Note: Pt states he had glasses in ED. technical project coordinator stated glasses were thought to be thrown away in linen. Per technical project coordinator, staff was looking into this issue.
[2024-03-11 15:05] VITALS: BP 152/97; PULSE 98; RESP 16; TEMP 37.2; O2SAT 98
[2024-03-11] MEDS: diphenhydrAMINE HCL 50 MG/ML VIAL 25 MG IVPUSH (16:27)
--- NOTE | 2024-03-11 16:31 | PC.NURSE ---
At 11:00 pt states he has not voided since yesterday. EILEEN Valladares made aware, Pt bladder scanned for 158ML. IVF increased from 100ml/hr to 125ml/hr per PA.
[2024-03-11] MEDS: Lactated Ringers 1,000 ML 125 ML IVCONT (17:32)
[2024-03-11 19:06] VITALS: BP 134/84; PULSE 100; RESP 16; TEMP 37.3; O2SAT 97
[2024-03-12] MEDS: Lactated Ringers 1,000 ML 125 ML IVCONT ×3 (01:19→17:53)
[2024-03-12 03:13] VITALS: BP 139/94; PULSE 84; RESP 16; TEMP 36.6; O2SAT 96
[2024-03-12] MEDS: Throat Spray, Medicated 177 ML BOTTLE 1 SPRAY MUCOUS MEM (05:56)
[2024-03-12 06:19] LABS: MANUAL DIFF FLAG NO
[2024-03-12 06:28] LABS: Basophils Percent Auto 0.1 % (0-2); Eosinophils Absolute Auto 0.2 X10*3/uL (0.0-0.4); Eosinophils Percent Auto 1.4 % (0-4); Hematocrit 44.6 % (42.0-52.0); Hemoglobin 15.5 g/dl (14.0-18.0); Imm Gran Abs Auto 0.04 X10*3/uL (0.00-0.03); Imm Gran Pct Auto 0.4 % (0.0-0.4); Lymphocytes Absolute Auto 1.1 X10*3/uL (1.2-4.9); Mean Corpuscular HGB Conc 34.8 g/dl (31.0-36.0); Mean Corpuscular Hemoglobin 30.9 pg (27.0-33.0); Mean Platelet Volume 9.9 fL (9.4-12.4); Monocytes Absolute Auto 0.7 X10*3/uL (0.1-1.2); Monocytes Percent Auto 6.1 % (2-11); Neutrophils Absolute Auto 9.2 x10*3/uL (2.0-8.3); Platelet Count 264 X10*3/uL (160-400); Red Blood Count 5.01 X10*6/uL (4.60-5.80); Red Cell Distribution Width 12.5 % (11.0-16.0); White Blood Count 11.3 X10*3/uL (4.8-10.8)
[2024-03-12 06:48] VITALS: BP 128/85; PULSE 95; RESP 16; TEMP 36.6; O2SAT 95
[2024-03-12 07:17] LABS: Anion Gap 13 (12-20); Blood Urea Nitrogen 19 mg/dL (9-16); Carbon Dioxide 23 mmol/L (22-29); Chloride 108 mmol/L (96-108); Creatinine Clr Calc Pharmacy 117.2; Estimated Glomerular Filt Rate > 60; Glucose Random 91 mg/dL (60-115); Potassium 3.6 mmol/L (3.3-5.1); Sodium 140 mmol/L (135-145)
--- NOTE | 2024-03-12 08:53 | HO.PM.IMPN ---
Subjective Subjective Date of Service: 03/12/24 Review of Systems Follow up ileus, diarrhea feeling better, no abdominal pain, no diarhea Physical Exam Vital Signs: Vital Signs: Last Vital Signs Temp 97.9 F 03/12/24 06:48 Pulse 95 03/12/24 06:48 Resp 16 03/12/24 06:48 BP 128/85 03/12/24 06:48 Pulse Ox 95 03/12/24 06:48 O2 Del Method Room Air 03/12/24 06:48 BMI result Body Mass Index 32.0 Appearing in no acute distress lung sounds are clear to auscultation heart regular rate rhythm, clear S1, S2 positive bowel sounds, abdomen is soft, nontender neuro patient is alert x3, no focal deficits NGT in place and clamped Objective Data Active Medications Acetaminophen (Acetaminophen 325 Mg Tablet) 650 mg PO Q6H PRN PRN Reason: Pain, Mild (Pain Scale 1-3), fever or headache Calcium Carbonate (Calcium Carbonate 750 Mg Tab.Chew) 750 mg PO Q4H PRN PRN Reason: Heartburn Lactated Ringer's (Lr) 1,000 mls @ 125 mls/hr IVCONT .Q8H [facility] Last Admin: 03/12/24 01:19 Dose: 125 mls/hr Documented By: JAMEY Magnesium Hydroxide (Milk Of Magnesia 30 Ml Oral.Susp) 30 ml PO DAILY PRN PRN Reason: Constipation Melatonin (Melatonin 3 Mg Tablet) 6 mg PO BEDTIME PRN PRN Reason: Insomnia Multi-Ingred Medicated Throat [place] (Throat [place], Medicated 177 Ml Bottle) 1 spray MUCOUS MEM Q2H PRN PRN Reason: Sore Throat Last Admin: 03/12/24 05:56 Dose: 1 spray Documented By: JAMEY Ondansetron HCl (Ondansetron Hcl 4 Mg/2 Ml Vial) 4 mg IVPUSH Q8H PRN PRN Reason: Nausea and Vomiting Sodium Chloride (0.9 % Sodium Chloride Flush 3 Ml Syringe) 3 ml IVFLUSH QSHIFT [facility] Last Admin: 03/12/24 08:39 Dose: Not Given Documented By: GEOVANNA Non-Admin Reason: IV Running Labs 03/12/24 05:41 03/12/24 05:41 Labs: Laboratory Results - last 24 hr 03/11/24 03/12/24 10:30 05:41 MCV 89.0 MCH 30.9 MCHC 34.8 RDW 12.5 Plt Count 264 MPV 9.9 Immature Gran % (Auto) 0.4 Neut % (Auto) 82.0 H Lymph % (Auto) 10.0 L [place] % (Auto) 6.1 Eos % (Auto) 1.4 Baso % (Auto) 0.1 Lymph # (Auto) 1.1 L [place] # (Auto) 0.7 Eos # (Auto) 0.2 Baso # (Auto) 0.0 Abs Immat Gran (auto) 0.04 H Absolute Neuts (auto) 9.2 H Absolute Nucleated RBC 0.000 Nucleated RBC % (auto) 0.0 Anion Gap 13 Estim Creat Clear Calc 117.2 Estimated GFR > 60 Random Glucose 91 Calcium 9.0 D Stl C. cayetanensis PCR Not Detected Stool Rotavirus A PCR Not Detected Stl Adenov F 40/41 PCR Not Detected Stool Astrovirus (PCR) Not Detected Stool Campylobacter PCR Not Detected Stool Cryptosporidium PCR Not Detected Stl Sh Tox Pr E STEC PCR Not Detected Stool E coli O157 PCR Not applicable Stl Enterotoxigenic E PCR Not Detected Stool EPEC (PCR) Not Detected Stool EAEC (PCR) Not Detected Stl E. histolytica PCR Not Detected Stool Giardia Lamblia PCR Not Detected Stl P. shigelloides PCR Not Detected Stool Salmonella PCR Not Detected Stool Sapovirus (PCR) Not Detected Stl Shigella/EIEC PCR Not Detected St Y.enterocolitica PCR Not Detected Stool Vibrio (PCR) Not Detected Stl Vibrio cholerae PCR Not Detected Stl Norovirus GI/GII PCR Not Detected Assessment and Plan (1) Gastroenteritis: Status: Acute (2) SBO (small bowel obstruction): Status: Acute Plan This is a 48-year-old male with pertinent history of hypertension, obesity on Ozempic who presents to the emergency department for evaluation of abdominal pain and distention. Ileus/partial SBO NG tube placed, high out out NPO general surgery following>NGT removed Resuscitated with IV crystalloids. clear liquid diet Hypertension Resume home antihypertensives once able to take p.o. Obesity Counseled regarding diet and exercise. Patient on Ozempic, hold DVT prophylaxis: Mechanical Attending Dr. Munroe Full code Quality Stroke Does the patient have a stroke diagnosis?: No VTE Prior VTE?: No VTE Risk Level:: Medical - moderate - high VTE Device Contraindication: N/A - Device Ordered VTE Drug Contraindication: Treatment Not Indicated
--- NOTE | 2024-03-12 08:58 | PM.PNGS ---
Subjective Subjective Date of Service: 03/12/24 Interval history: Feels well Passing flatus diarrhea resolved Denies abdominal pain NG tube output reported to be high overnight Physical Exam Vital Signs: Vital Signs: Last Vital Signs Temp 97.9 F 03/12/24 06:48 Pulse 95 03/12/24 06:48 Resp 16 03/12/24 06:48 BP 128/85 03/12/24 06:48 Pulse Ox 95 03/12/24 06:48 O2 Del Method Room Air 03/12/24 06:48 BMI result Body Mass Index 32.0 Const: General: comfortable and no acute distress Resp: Effort & Inspection: normal respiratory effort GI: Palpation (GI): Soft to palpation, not firm, nontender and no guarding Objective Data Active Medications Acetaminophen (Acetaminophen 325 Mg Tablet) 650 mg PO Q6H PRN PRN Reason: Pain, Mild (Pain Scale 1-3), fever or headache Calcium Carbonate (Calcium Carbonate 750 Mg Tab.Chew) 750 mg PO Q4H PRN PRN Reason: Heartburn Lactated Ringer's (Lr) 1,000 mls @ 125 mls/hr IVCONT .Q8H [facility] Last Admin: 03/12/24 01:19 Dose: 125 mls/hr Documented By: JAMEY Magnesium Hydroxide (Milk Of Magnesia 30 Ml Oral.Susp) 30 ml PO DAILY PRN PRN Reason: Constipation Melatonin (Melatonin 3 Mg Tablet) 6 mg PO BEDTIME PRN PRN Reason: Insomnia Multi-Ingred Medicated Throat [place] (Throat [place], Medicated 177 Ml Bottle) 1 spray MUCOUS MEM Q2H PRN PRN Reason: Sore Throat Last Admin: 03/12/24 05:56 Dose: 1 spray Documented By: JAMEY Ondansetron HCl (Ondansetron Hcl 4 Mg/2 Ml Vial) 4 mg IVPUSH Q8H PRN PRN Reason: Nausea and Vomiting Sodium Chloride (0.9 % Sodium Chloride Flush 3 Ml Syringe) 3 ml IVFLUSH QSHIFT [facility] Last Admin: 03/12/24 08:39 Dose: Not Given Documented By: GEOVANNA Non-Admin Reason: IV Running Labs 03/12/24 05:41 03/12/24 05:41 Labs: Laboratory Results - last 24 hr 03/11/24 03/12/24 10:30 05:41 MCV 89.0 MCH 30.9 MCHC 34.8 RDW 12.5 Plt Count 264 MPV 9.9 Immature Gran % (Auto) 0.4 Neut % (Auto) 82.0 H Lymph % (Auto) 10.0 L [place] % (Auto) 6.1 Eos % (Auto) 1.4 Baso % (Auto) 0.1 Lymph # (Auto) 1.1 L [place] # (Auto) 0.7 Eos # (Auto) 0.2 Baso # (Auto) 0.0 Abs Immat Gran (auto) 0.04 H Absolute Neuts (auto) 9.2 H Absolute Nucleated RBC 0.000 Nucleated RBC % (auto) 0.0 Anion Gap 13 Estim Creat Clear Calc 117.2 Estimated GFR > 60 Random Glucose 91 Calcium 9.0 D Stl C. cayetanensis PCR Not Detected Stool Rotavirus A PCR Not Detected Stl Adenov F 40/41 PCR Not Detected Stool Astrovirus (PCR) Not Detected Stool Campylobacter PCR Not Detected Stool Cryptosporidium PCR Not Detected Stl Sh Tox Pr E STEC PCR Not Detected Stool E coli O157 PCR Not applicable Stl Enterotoxigenic E PCR Not Detected Stool EPEC (PCR) Not Detected Stool EAEC (PCR) Not Detected Stl E. histolytica PCR Not Detected Stool Giardia Lamblia PCR Not Detected Stl P. shigelloides PCR Not Detected Stool Salmonella PCR Not Detected Stool Sapovirus (PCR) Not Detected Stl Shigella/EIEC PCR Not Detected St Y.enterocolitica PCR Not Detected Stool Vibrio (PCR) Not Detected Stl Vibrio cholerae PCR Not Detected Stl Norovirus GI/GII PCR Not Detected Procedures Date of Service Date of Service: 03/12/24 Progress Note: A&P Assessment and plan (1) Gastroenteritis: Status: Acute Assessment and Plan: His diarrhea has resolved Abdomen soft, benign Clinically not obstructed We will clamp NG tube and evaluate after 4 hours If NG tube output is low after that, we will DC NG tube Looks well overall Time Spent With Patient Time: Total time managing care of this patient today ____ minutes. Quality Stroke Does the patient have a stroke diagnosis?: No VTE Prior VTE?: No VTE Risk Level:: Medical - moderate - high VTE Device Contraindication: N/A - Device Ordered VTE Drug Contraindication: Treatment Not Indicated
--- NOTE | 2024-03-12 13:45 | PM.EVENT ---
Event Note Date of Service: 03/12/24 Event Note: Patient is seen this afternoon NG tube had been clamped since 08:00 o'clock this morning He denies any nausea or abdominal pain NG tube unclamped, noted to have no significant drainage Patient clinically feels well I therefore pulled out the NG tube He can be on ice chips and sips of clears for now Time Spent With Patient Time: Total time managing care of this patient today ____ minutes.
--- NOTE | 2024-03-12 15:11 | MHC.CM.PN ---
per rounds not medically clear for dc dc plans remain home no servies
[2024-03-12 15:12] VITALS: BP 136/83; PULSE 90; RESP 20; TEMP 36.6; O2SAT 95
[2024-03-12 19:10] VITALS: BP 119/82; PULSE 89; RESP 20; TEMP 36.6; O2SAT 95
[2024-03-13] MEDS: Lactated Ringers 1,000 ML 125 ML IVCONT (01:09)
[2024-03-13 02:50] VITALS: BP 134/86; PULSE 89; RESP 18; TEMP 36.5; O2SAT 97
[2024-03-13 06:43] VITALS: BP 112/67; PULSE 80; RESP 16; TEMP 36.6; O2SAT 96
--- NOTE | 2024-03-13 08:44 | P.DS_ITS ---
DS: Providers Provider Date of Service: 03/13/24 Date of admission: 03/11/24 06:07 Primary care physician: Unknown Physician Consults: 03/11/24 06:07 Consult to General Surgery [place]ine [place]ing Provider[place] [facility] [place] Reason for consultation: Ileus/parital sbo DS: Diagnosis Discharge Diagnosis (1) Gastroenteritis: Status: Acute (2) SBO (small bowel obstruction): Status: Acute DS: Summary Hospital Course Hospital Course: History and physical as per admitting provider. This is a 48-year-old male with pertinent history of hypertension, obesity on Ozempic who presents to the emergency department for evaluation of abdominal pain and distention. Patient states he started having multiple episodes of nonbloody watery diarrhea on 03/09 after he ate a subway sandwich. Patient was seen in the ER on 03/10 and discharged after IV crystalloid resuscitation. Patient states he continued to have abdominal pain with distention. Abdominal pain was generalized, progressive, nonradiating and without any relieving factors. States he was unable to pass stools on the day of presentation despite abdominal pressure. No history of similar complaints in the past or history of abdominal surgery. No recent use of antibiotics. Had 1 episode of nonbloody emesis in the ER. No fever, chills, chest discomfort, palpitations, shortness of breath, changes in urinary habits. In the emergency department, imaging concerning for ileus. NG tube was placed and more than 1200 cc output obtained. 48-year-old man treated for small-bowel obstruction and gastroenteritis. He was treated with NG tube and initially had high outputs, NG tube discontinued 03/12/2024, he was seen and evaluated by General surgery removed NG tube. GI panel was essentially negative, he was treated with IV hydration initially NPO then clear liquid diet then advanced to regular. He is now having bowel movements and no pain. Bowel obstruction has resolved. Plan is to discharge patient home and he is in agreement with this Hypertension. Continue home medications Obesity class 1. Discussed importance of weight management as this may be contributing to worsening of other comorbidities Time Attestation Discharge Coordination Time (in mins): 35 Quality: Safe Use of Opioids Does Pt have an Active Cancer Diagnosis on the Problem List?: No Quality: Stroke Does the patient have a stroke diagnosis?: No Physical Exam Vital Signs: Vital Signs: Last Vital Signs Temp 98 F 03/13/24 06:43 Pulse 80 03/13/24 06:43 Resp 16 03/13/24 06:43 BP 112/67 03/13/24 06:43 Pulse Ox 96 03/13/24 06:43 O2 Del Method Room Air 03/13/24 06:43 BMI result Body Mass Index 32.0 Appearing in no acute distress head is normocephalic atraumatic eyes pupils are PERRLA sclera is anicteric mouth throat mucous membranes are intact and moist neck is supple no lymphadenopathy, no JVD noted lung sounds are clear to auscultation heart regular rate rhythm, clear S1, S2 positive bowel sounds, abdomen is soft, nontender neuro patient is alert x3, no focal deficits Discharge Plan Discharge Anticipated Discharge Date/Time: 03/13/24 08:42 Patient Disposition: Home, Self-Care Discharge Diagnosis: Small-bowel obstruction Gastroenteritis Ileus Discharge Medications: Continued psyllium husk 0.52 gram Capsule 1,450 PO DAILY tadalafil 5 mg Tablet 5 mg PO DAILY Ozempic 0.25 mg or 0.5 mg (2 mg/3 mL) Pen Injector 0.75 mg SUBCUT QWEEK Discharge Orders: Discharge Order (Routine); Ordered 03/13/24 Ordered By: Mckenzie Meza Diet: Advance to usual diet Activity on Discharge: As tolerated Stand Alone Forms: Patient Portal Discharge page Print Language: Telugu Care Plan Goals: Stick to bland foods for a few days Health Concerns: Small-bowel obstruction Gastroenteritis Ileus Plan of Treatment: Follow-up with primary care provider as needed Take all medications as prescribed Assessment: See discharge summary Patient Instructions: Gastroenteritis (GEN), Bowel Obstruction (GEN), Ileus (GEN)
--- NOTE | 2024-03-13 09:41 | PM.PNGS ---
Subjective Subjective Date of Service: 03/13/24 Interval history: Feels well this morning Diarrhea resolved Denies abdominal pain Denies any vomiting or nausea Passing flatus Physical Exam Vital Signs: Vital Signs: Last Vital Signs Temp 98 F 03/13/24 06:43 Pulse 80 03/13/24 06:43 Resp 16 03/13/24 06:43 BP 112/67 03/13/24 06:43 Pulse Ox 96 03/13/24 06:43 O2 Del Method Room Air 03/13/24 06:43 BMI result Body Mass Index 32.0 Const: General: comfortable and no acute distress Resp: Effort & Inspection: normal respiratory effort Cardio: Rate: regular rate GI: Palpation (GI): Soft to palpation, not firm, nontender and no guarding Objective Data Active Medications Acetaminophen (Acetaminophen 325 Mg Tablet) 650 mg PO Q6H PRN PRN Reason: Pain, Mild (Pain Scale 1-3), fever or headache Calcium Carbonate (Calcium Carbonate 750 Mg Tab.Chew) 750 mg PO Q4H PRN PRN Reason: Heartburn Magnesium Hydroxide (Milk Of Magnesia 30 Ml Oral.Susp) 30 ml PO DAILY PRN PRN Reason: Constipation Melatonin (Melatonin 3 Mg Tablet) 6 mg PO BEDTIME PRN PRN Reason: Insomnia Multi-Ingred Medicated Throat [place] (Throat [place], Medicated 177 Ml Bottle) 1 spray MUCOUS MEM Q2H PRN PRN Reason: Sore Throat Last Admin: 03/12/24 05:56 Dose: 1 spray Documented By: JAMEY Ondansetron HCl (Ondansetron Hcl 4 Mg/2 Ml Vial) 4 mg IVPUSH Q8H PRN PRN Reason: Nausea and Vomiting Sodium Chloride (0.9 % Sodium Chloride Flush 3 Ml Syringe) 3 ml IVFLUSH [facility] Last Admin: 03/13/24 07:23 Dose: Not Given Documented By: JAMEY Non-Admin Reason: IV Running Labs 03/12/24 05:41 03/12/24 05:41 Procedures Date of Service Date of Service: 03/13/24 Progress Note: A&P Assessment and plan (1) Ileus: Status: Acute Assessment and Plan: NG tube DC yesterday No nausea or vomiting No abdominal pain Passing flatus Diet as tolerated Okay to DC home once on diet no surgical issues at this time Time Spent With Patient Time: Total time managing care of this patient today ____ minutes. Quality Stroke Does the patient have a stroke diagnosis?: No VTE Prior VTE?: No VTE Risk Level:: Medical - moderate - high VTE Device Contraindication: N/A - Device Ordered VTE Drug Contraindication: Treatment Not Indicated
--- NOTE | 2024-03-13 13:50 | MHC.CM.PN ---
pt dcd home self caRE
== END 2024-03-13 14:06 | disposition home or self-care (01) | DRG 392 ==
LOC: HO.ED 05:33 → HO.EDOVER 06:16 → HO.S3 07:27
PROVIDERS: Admitting Provider Student in an Organized Health Care Education/Training Program; Emergency Provider Emergency Medicine; PCP Internal Medicine; Visit Provider Nurse Practitioner Acute Care
DX: K52.9 Noninfective gastroenteritis and colitis, unspecified (principal); K56.7 Ileus, unspecified; K56.609 Unspecified intestinal obstruction, unspecified as to partial versus complete obstruction; I10 Essential (primary) hypertension; E66.8 Other obesity; Z68.32 Body mass index [BMI] 32.0-32.9, adult; Z20.822 Contact with and (suspected) exposure to COVID-19; Z87.891 Personal history of nicotine dependence; Z79.899 Other long term (current) drug therapy
CPT/HCPCS: 0241U; 36415; 71045; 74018; 74176; 80048; 80053; 83690; 85025; 87507; 93005; 99285; J1200; J2060; J2405; J2470; J7120

== ENCOUNTER → 2024-03-11 01:47 | Outpatient (BNV) | payer OTHER, SELFPAY | PROVIDERS: Emergency Provider Emergency Medicine; Visit Provider Student in an Organized Health Care Education/Training Program | DX: K56.7 Ileus, unspecified (principal) | CPT/HCPCS: 99222; 99232; 99239; 99499 ==

== ENCOUNTER → 2024-03-11 06:07 | Outpatient (BNV) | payer OTHER, SELFPAY | PROVIDERS: Admitting Provider Student in an Organized Health Care Education/Training Program; Emergency Provider Emergency Medicine; Visit Provider Surgery | DX: K52.9 Noninfective gastroenteritis and colitis, unspecified (principal) | CPT/HCPCS: 99222; 99232; 99499 ==

== ENCOUNTER 2024-12-13 07:01 | Emergency (ER) | payer OTHER, SELFPAY ==
--- NOTE | ~2024-12-13 | CT_ITS ---
EXAMINATION: CT ABDOMEN PELVIS WITHOUT IV CONTRAST HISTORY: Lower abdominal cramps and diarrhea, R/ O colitis COMPARISON: There are no prior studies available for comparison. TECHNIQUE: CT scan of the abdomen and pelvis was performed without contrast using standard departmental protocol. Coronal and sagittal reformatted images were generated and reviewed. Oral contrast material was not administered at the request of the referring physician. This CT exam was performed with one or more of the following dose reduction techniques: automated exposure control, adjustment of the mA and/or kV according to patient size, use of iterative reconstruction technique. DLP: 524 mGy-cm FINDINGS: LOWER CHEST: The visualized lung bases are clear. There is no pleural effusion. CARDIOVASCULATURE: The heart is normal in size. There is no pericardial effusion. LIVER: The liver is normal in size and contour. The liver has an unremarkable unenhanced appearance. GALLBLADDER / BILE DUCTS: The gallbladder is unremarkable. There is no intra or extrahepatic biliary ductal dilatation. SPLEEN: The spleen is normal in size and has an unremarkable unenhanced appearance. PANCREAS: The pancreas has an unremarkable unenhanced appearance. ADRENAL GLANDS: Unremarkable. KIDNEYS/RETROPERITONEUM: There is a 4 mm nonobstructing calculus at the upper pole of the left kidney. No right renal calculi are identified. There is no hydronephrosis. LYMPH NODES: No retroperitoneal lymphadenopathy is identified in the abdomen or pelvis. VASCULATURE: The abdominal aorta is normal in caliber. MESENTERY/PERITONEUM: No free fluid. No masses. There is no free intraperitoneal gas. STOMACH: The stomach is collapsed, limiting evaluation. SMALL BOWEL: The small bowel is normal in caliber. COLON: The colon is largely collapsed. There may be mild wall thickening involving the splenic flexure and descending colon. APPENDIX: Normal. URINARY BLADDER/PELVIC ORGANS: The urinary bladder is collapsed, limiting evaluation. The prostate is normal in size. BONES / SOFT TISSUES: No suspicious bony or soft tissue abnormalities. CT/CT abdomen pelvis wo IV con IMPRESSION: 1. Possible mild wall thickening of the splenic flexure and descending colon. Evaluation is limited by underdistention. 2. 4 mm nonobstructing left renal calculus. Electronically signed by: Perry Martinez MD 12/13/2024 08:42 AM EDT RP
[2024-12-13 07:08] VITALS: BP 126/84; PULSE 75; RESP 16; TEMP 36.8; O2SAT 97; BMI 29.0
[2024-12-13 07:31] LABS: MANUAL DIFF FLAG NO
[2024-12-13 07:34] LABS: Basophils Percent Auto 0.4 % (0-2); Eosinophils Absolute Auto 0.1 X10*3/uL (0.0-0.4); Eosinophils Percent Auto 1.4 % (0-4); Hematocrit 44.7 % (42.0-52.0); Hemoglobin 16.1 g/dl (14.0-18.0); Imm Gran Abs Auto 0.01 X10*3/uL (0.00-0.03); Imm Gran Pct Auto 0.1 % (0.0-0.4); Lymphocytes Absolute Auto 1.1 X10*3/uL (1.2-4.9); Lymphocytes Percent Auto 16.2 % (20-40); Mean Corpuscular Hemoglobin 31.4 pg (27.0-33.0); Mean Corpuscular Volume 87.3 fL (80.0-98.0); Mean Platelet Volume 10.1 fL (9.4-12.4); Monocytes Absolute Auto 0.5 X10*3/uL (0.1-1.2); Monocytes Percent Auto 7.2 % (2-11); Neutrophils Absolute Auto 5.2 x10*3/uL (2.0-8.3); Neutrophils Percent Auto 74.7 % (45-73); Platelet Count 262 X10*3/uL (160-400); Red Blood Count 5.12 X10*6/uL (4.60-5.80); Red Cell Distribution Width 12.7 % (11.0-16.0); White Blood Count 6.9 X10*3/uL (4.8-10.8)
[2024-12-13 07:37] VITALS: BP 123/88; PULSE 75; RESP 17; TEMP 37; O2SAT 96
[2024-12-13 07:45] LABS: Alanine Aminotransferase 18 U/L (0-40); Albumin Level 4.5 g/dL (3.5-5.0); Alkaline Phosphatase 65 U/L (39-117); Anion Gap 10 (12-20); Aspartate Amino Transferase 21 U/L (5-37); Bilirubin Total 0.7 mg/dL (0.0-1.0); Blood Urea Nitrogen 17 mg/dL (9-16); Calcium 9.3 mg/dL (8.4-10.2); Carbon Dioxide 23 mmol/L (22-29); Chloride 108 mmol/L (96-108); Creatinine Clr Calc Pharmacy 101.9; Estimated Glomerular Filt Rate > 60; Glucose Random 110 mg/dL (60-115); Lipase 20 U/L (8-78); Potassium 4.3 mmol/L (3.3-5.1); Sodium 137 mmol/L (135-145); Total Protein 7.5 g/dL (6.5-8.0)
--- NOTE | 2024-12-13 08:13 | ED.NAVMDI ---
HPI - Nausea/Vomiting/Diarrhea General Chief complaint: Nausea/Vomiting/Diarrhea Stated complaint: abd pain Time Seen by Provider: 12/13/24 08:01 Source: patient Mode of arrival: ambulatory Limitations: no limitations History of Present Illness ED Provider: DR. Allison HPI Narrative: 49-year-old male with pertinent history of hypertension,came in for evaluation of 3 days of nonbloody watery diarrhea with lower abdominal cramps followed by loose stool diarrhea, no nausea, no vomiting, no fever, patient had a recent colonoscopy with polypectomy. No known GI issues , no known intra-abdominal surgery, no recent travel, no recent use of antibiotic, no fever, no chills, last bowel movement was early today and was loose, no dysuria, no frequency induration, no Hematuria. Patient took 5 pills of [id number] laxative over the last 2 days. Related Data Home Medications ?Medication ?Instructions ?Recorded ?Confirmed psyllium husk 0.52 gram capsule 1,450 PO DAILY 03/11/24 semaglutide 0.25 mg or 0.5 mg (2 0.75 mg subcut QWEEK 03/11/24 03/11/24 mg/3 mL) subcutaneous pen injector ([employer]) tadalafil 5 mg tablet 5 mg PO DAILY 03/11/24 03/11/24 Allergies Allergy/AdvReac Type Severity Reaction Status Date / Time No Known Allergies (No Known Allergy Verified 12/13/24 07:10 Allergies*) Review of Systems Review of Systems: all other systems are reviewed and are negative Constitutional: Reports as per HPI and Reports no additional constitutional complaints Eyes: Reports as per HPI and Reports no additional eye complaints Reports system reviewed and no additional complaints, except as documented Cardiovascular: Reports as per HPI and Reports no additional cardiovascular complaints Respiratory: Reports as per HPI and Reports no additional respiratory complaints Gastrointestinal: Reports as per HPI and Reports no additional gastrointestinal complaints Genitourinary: Reports no additional female genitourinary complaints Musculoskeletal: Reports no additional musculoskeletal complaints Skin/Breast: Reports system reviewed and no additional complaints, except as docu Psychiatric: Reports no additional psychiatric complaints Endocrine: Reports no additional endocrine complaints Hematologic/Lymphatic: Reports no additional hematologic/lymphatic complaints Allergic/Immunologic: Reports no additional allergic/immunologic complaints Reports system reviewed and no additional complaints, except as documented and Reports Abnormal speech present [facility] Past Medical History Medical History Gastroenteritis Hypertension Social History Social History Household Members: None Housing: Apartment Do you presently have visiting nurse or other home services: No Alcohol intake: current Alcohol intake frequency: a few times a week Alcohol type: hard liquor Patient Tobacco Use Status: Former Tobacco user Tobacco use type: Cigarette Smoked in Last 30 Days: Yes Use of substances other than those prescribed or required for medical reasons: No Advance Directives: No Advance Directives Information Provided: Yes Do you have a plan to hurt others: No Plan service: No Physical Exam Vital Signs: Vital Signs: Last Vital Signs Temp 98.6 F 12/13/24 07:37 Pulse 75 12/13/24 07:37 Resp 17 12/13/24 07:37 BP 123/88 12/13/24 07:37 Pulse Ox 96 12/13/24 07:37 O2 Del Method Room Air 12/13/24 07:37 BMI result Body Mass Index 29.0 Vital signs have been reviewed and appear to be correct. Blood pressure elevated. Heart rate normal. Respiratory rate normal. Temperature normal. Oxygen saturation normal. Appearance: Alert. Oriented X3. No acute distress. Head: Normal external exam. Normocephalic. Atraumatic. No Maxwell signs noted. No raccoon eyes noted Eyes: PERRLA. EOMI. Conjunctiva and sclera normal. Eyelids normal. ENT: TM's Normal. Pharynx normal. Uvula midline. Moist mucous membranes. No trismus noted. No drooling noted. No muffled voice noted. Neck: Normal inspection. Neck supple. FROM. No adenopathy. Thyroid Normal. No meningeal signs. No neck mass noted. CVS: Normal heart rate and rhythm. Heart sound normal. No murmurs noted. Pulses normal throughout. Respiratory: No respiratory distress. Painless inspiration. Breath sounds normal. No wheezes/rales/rhonchi noted. Chest nontender. No accessory muscle usage noted or decreased air movement noted. Abdomen: Soft and nontender. Bowel sounds normal in all 4 quadrants. No distention noted. No organomegaly noted. No visible injury noted. Back: No CVA tenderness. Full range of motion noted. Skin: Skin warm and dry. Normal skin color. Normal skin turgor. No rashes/lesions/lacerations noted. Extremities: No lower extremity edema. Extremities exhibit normal range of motion. Extremities nontender. Neuro: Oriented X 3. Cranial nerve exam: II-XII are grossly intact No motor deficit. No sensory deficit. Reflexes normal. Course Reevaluation(s) Reevaluation #1: 49-year-old male came in for evaluation of lower abdominal pain with diarrhea Started after patient took mxqf-koz-sfuwzgg laxative. labs are unremarkable, CT is equivocal for colitis in light of normal WBCs and absence of blood in the stool and a benign abdominal exam colitis is unfavorable diagnosis. Time: 11:42 Medications Administered Discontinued Medications Generic Name Dose Route Start Last Admin Trade Name Freq PRN Reason Stop Dose Admin Loperamide HCl 2 mg 12/13/24 08:11 12/13/24 08:18 Loperamide Hcl 2 Mg Capsule PO 12/13/24 08:12 2 mg ONCE ONE Administration Medical Decision Making Differential Diagnosis Differential Diagnoses: The differential diagnosis associated with the presentation includes ( colitis, diverticulitis, appendicitis, UTI, pyelonephritis, kidney stone, diarrhea induced by using oyyu-hin-kkwqbtm laxative.) Admission/Observation Consideration of admission/observation: Escalation of care including admission/observation considered Lab Data MDM Lab Attestation statement: I reviewed the patient's lab results. 12/13/24 07:27 12/13/24 07:27 Labs: Lab Results 12/13/24 12/13/24 Range/Units 07:27 10:54 WBC 6.9 (4.8-10.8) X10*3/uL RBC 5.12 (4.60-5.80) X10*6/uL Hgb 16.1 (14.0-18.0) g/dl Hct 44.7 (42.0-52.0) % MCV 87.3 (80.0-98.0) fL MCH 31.4 (27.0-33.0) pg MCHC 36.0 (31.0-36.0) g/dl RDW 12.7 (11.0-16.0) % Plt Count 262 (160-400) X10*3/uL MPV 10.1 (9.4-12.4) fL Immature Gran % (Auto) 0.1 (0.0-0.4) % Neut % (Auto) 74.7 H (45-73) % Lymph % (Auto) 16.2 L (20-40) % [place] % (Auto) 7.2 (2-11) % Eos % (Auto) 1.4 (0-4) % Baso % (Auto) 0.4 (0-2) % Lymph # (Auto) 1.1 L (1.2-4.9) X10*3/uL [place] # (Auto) 0.5 (0.1-1.2) X10*3/uL Eos # (Auto) 0.1 (0.0-0.4) X10*3/uL Baso # (Auto) 0.0 (0.0-0.2) X10*3/uL Abs Immat Gran (auto) 0.01 (0.00-0.03) X10*3/uL Absolute Neuts (auto) 5.2 (2.0-8.3) x10*3/uL Absolute Nucleated RBC 0.000 (0.0-0.012) X10*3/uL Nucleated RBC % (auto) 0.0 (0.0-0.2) /100WBC Sodium 137 (135-145) mmol/L Potassium 4.3 (3.3-5.1) mmol/L Chloride 108 (96-108) mmol/L Carbon Dioxide 23 (22-29) mmol/L Anion Gap 10 L (12-20) BUN 17 H (9-16) mg/dL Creatinine 0.87 (0.5-1.4) mg/dL Estim Creat Clear Calc 101.9 Estimated GFR > 60 Random Glucose 110 (60-115) mg/dL Calcium 9.3 (8.4-10.2) mg/dL Magnesium 2.0 (1.6-2.6) mg/dL Total Bilirubin 0.7 (0.0-1.0) mg/dL AST 21 (5-37) U/L ALT 18 (0-40) U/L Alkaline Phosphatase 65 (39-117) U/L Total Protein 7.5 (6.5-8.0) g/dL Albumin 4.5 (3.5-5.0) g/dL Lipase 20 (8-78) U/L Urine Color Dark Yellow Urine Appearance Clear Urine pH 5.5 (5.0-9.0) Ur Specific [place] 1.025 (1.005-1.025) Urine Protein Negative (Neg-Trace) mg/dL Urine Glucose (UA) Negative (Negative) mg/dL Urine Ketones Negative (Negative) mg/dL Urine Blood Negative (Negative) Urine Nitrite Negative (Negative) Ur Leukocyte Esterase Negative (Negative) Independent Interpretation I performed an independent interpretation of an: CT Scan ( Abdomen pelvis:1. Possible mild wall thickening of the splenic flexure and descending colon. Evaluation is limited by underdistention. 2. 4 mm nonobstructing left renal calculus. ) Radiology Impression Discussion of test interpretation with radiology: I have reviewed the radiologist's reading. Discharge Plan Discharge Clinical Impression: Diarrhea due to laxative abuse Patient Disposition: Home, Self-Care Instructions: Acute Diarrhea (ED) Prescriptions: No Action psyllium husk 0.52 gram Capsule 1,450 PO DAILY tadalafil 5 mg Tablet 5 mg PO DAILY Ozempic 0.25 mg or 0.5 mg (2 mg/3 mL) Pen Injector 0.75 mg SUBCUT QWEEK Referrals: Nikky Torres MD [Primary Care Provider, Primary Care] Print Language: Kittitian
[2024-12-13] MEDS: Loperamide HCl 2 MG CAPSULE PO (08:18)
[2024-12-13 11:10] LABS: Appearance Urine Clear; Color Urine Dark Yellow; Glucose Urine UA Negative (Negative); Leukocyte Esterase Urine Negative (Negative); Nitrite Urine Negative (Negative); PH 5.5 (5.0-9.0); Specific Gravity - Urine 1.025 (1.005-1.025); Urine Blood Negative (Negative); Urine Ketones Negative (Negative); Urine Protein Negative (Neg-Trace)
[2024-12-13 11:52] VITALS: BP 122/85; PULSE 70; RESP 12; O2SAT 99
[2024-12-13] MEDS: Ibuprofen 800 MG TABLET PO (11:55)
[2024-12-13 11:56] VITALS: BP 122/85; PULSE 70; RESP 12; TEMP 37; O2SAT 99
== END 2024-12-13 11:59 | disposition home or self-care (01) ==
PROVIDERS: Emergency Provider Emergency Medicine; PCP Internal Medicine
DX: R11.2 Nausea with vomiting, unspecified (principal); R10.2 Pelvic and perineal pain; R19.7 Diarrhea, unspecified; Z79.899 Other long term (current) drug therapy; Z87.891 Personal history of nicotine dependence
CPT/HCPCS: 36415; 74176; 80053; 81003; 83690; 83735; 85025; 99284

== ENCOUNTER → 2024-12-13 08:11 | Outpatient (BNV) | payer OTHER, SELFPAY | PROVIDERS: Emergency Provider Emergency Medicine; PCP Internal Medicine; Visit Provider Radiology Diagnostic Radiology | DX: N20.0 Calculus of kidney (principal) | CPT/HCPCS: 74176 ==